=== PATIENT | female | born 1940 | race Caucasian/White ===

== ENCOUNTER 2020-09-16 16:58 | Emergency (ER) | payer MEDICARE, OTHER ==
[2020-09-16] MEDS ORDERED: Acetaminophen 325 MG Tab PO ONE (18:32)
[2020-09-16] MEDS ORDERED: Sodium Chloride 0.9% 1,000 ML IV ONE (20:35)
--- NOTE | 2020-09-16 21:23 | EDM.PDOC ---
ED HPI GENERAL MEDICAL PROBLEM - General Chief Complaint: Cardiovascular Problem Stated Complaint: HIGH HEART RATE Time Seen by Provider: 09/16/20 17:54 Source of Information: Reports: Patient, Family History Limitations: Reports: No Limitations - History of Present Illness INITIAL COMMENTS - FREE TEXT/NARRATIVE: Megan is a 72-year-old female presenting to the ED for evaluation of rapid heartbeat. The patient has been having intermittent episodes of this as well as episodes of dizziness and lightheadedness following having bilateral knee replacements done in [place] 5 weeks ago. Patient has been getting home physical therapy and one of the therapist checked her for orthostatic hypotension which was positive on 1 evaluation and negative on subsequent evaluation. The tachycardia does appear to be both at rest and with position change. The patient denies any shortness of breath or chest pain with it. She has been experiencing increased eye dryness and irritation as well as dry mucous membranes. She does report that she has not been drinking as much fluids since having the surgery and was at one point struggling with constipation due to the pain medicine that she was on, however, this is since improved since discontinuing the pain medicine. The patient denies any significant history of thyroid or cardiac problems. She is currently only taking Tylenol for pain. She denies any history of hypotension or hypertension. She states that as a teenager she had hypothyroidism but subsequently "outgrew that" and is no longer on thyroid replacement therapy. - Related Data Allergies Allergy/AdvReac Type Severity Reaction Status Date / Time chlordiazepoxide AdvReac Anxiety Verified 09/16/20 17:15 [From Librax (with methscopolamine)] scopolamine AdvReac Anxiety Verified 09/16/20 17:15 [From Librax (with methscopolamine)] Home Meds: Home Meds Omeprazole 40 mg PO ACBREAKFAST 09/16/20 [History] Oxybutynin 5 mg PO DAILY 09/16/20 [History] hydroCHLOROthiazide [Hydrochlorothiazide] 25 mg PO DAILY 09/16/20 [History] Past Medical History HEENT History: Reports: Impaired Vision Cardiovascular History: Reports: Hypertension Gastrointestinal History: Reports: Chronic Diarrhea, Irritable Bowel Syndrome Genitourinary History: Reports: UTI, Recurrent Musculoskeletal History: Reports: Arthritis - Past Surgical History Head Surgeries/Procedures: Reports: None HEENT Surgical History: Reports: Cataract Surgery Cardiovascular Surgical History: Reports: None GI Surgical History: Reports: Hernia, Abdominal Female Surgical History: Reports: Hysterectomy Musculoskeletal Surgical History: Reports: Hip Replacement, Knee Replacement, Other (See Below) Other Musculoskeletal Surgeries/Procedures:: left ankle Dermatological Surgical History: Reports: None Social & Family History - Tobacco Use Tobacco Use Status *Q: Former Tobacco User Used Tobacco, but Quit: Yes Month/Year Tobacco Last Used: 1969 Second Hand Smoke Exposure: No - Caffeine Use Caffeine Use: Reports: None - Recreational Drug Use Recreational Drug Use: No ED ROS GENERAL - Review of Systems Review Of Systems: See Below Constitutional: Reports: No Symptoms HEENT: Reports: Other (Dry eyes and mucous membranes) Respiratory: Reports: No Symptoms Cardiovascular: Reports: Lightheadedness, Palpitations (Tachycardia) Endocrine: Reports: No Symptoms GI/Abdominal: Reports: Constipation : Reports: Other (Decreased urination and darker urine.) Musculoskeletal: Reports: Joint Pain (Bilateral knee pain after replacement), Muscle Stiffness (Due to recent surgery) Skin: Reports: No Symptoms Neurological: Reports: Dizziness (Intermittently), Difficulty Walking (Due to recent bilateral knee replacement, currently undergoing physical therapy.) Psychiatric: Reports: No Symptoms Hematologic/Lymphatic: Reports: No Symptoms Immunologic: Reports: No Symptoms ED EXAM, GENERAL - Physical Exam Exam: See Below Exam Limited By: No Limitations General Appearance: Alert, WD/WN, No Apparent Distress Eye Exam: Bilateral Eye: EOMI, PERRL Throat/Mouth: Normal Lips, Normal Teeth, Normal Voice, Other (Dry mucous membranes) Head: Atraumatic, Normocephalic Neck: Normal Inspection, Supple, Non-Tender, Full Range of Motion. No: Carotid Bruit, Lymphadenopathy (R), Lymphadenopathy (L) Respiratory/Chest: No Respiratory Distress, Lungs Clear, Normal Breath Sounds, No Accessory Muscle Use, Chest Non-Tender Cardiovascular: Normal Peripheral Pulses, No Edema, No JVD, No Murmur, Tachycardia Peripheral Pulses: 2+: Radial (L), Radial (R), Posterior Tibial (L), Posterior Tibial (R) GI/Abdominal: Normal Bowel Sounds, Soft, Non-Tender, No Distention Back Exam: Normal Inspection, Full Range of Motion, NT Extremities: Normal Inspection, Normal Range of Motion, Non-Tender, Normal Capillary Refill, No Pedal Edema Neurological: Alert, Oriented, CN II-XII Intact, Normal Cognition, No Motor/Sensory Deficits Psychiatric: Normal Affect, Normal Mood Skin Exam: Warm, Dry, Intact, Normal Color, Wound/Incision (Surgical incisions are clean, dry, and intact.) Lymphatic: No Adenopathy #1 Interpretation EKG Date: 09/16/20 Time: 18:42 Rhythm: NSR Rate (Beats/Min): 80 [place]: Normal P-Wave: Present QRS: Normal ST-T: Normal QT: Normal Comparison: NA - No Prior EKG Course - Vital Signs Last Recorded V/S: Last Vital Signs Temp 36.4 C 09/16/20 17:17 Pulse 87 09/16/20 21:23 Resp 12 09/16/20 21:23 BP 138/57 L 09/16/20 21:23 Pulse Ox 98 09/16/20 21:23 - Orders/Labs/Meds Orders: Active Orders 24 hr Category Date Time Status EKG Documentation Completion [RC] ASDIRECTED Care 09/16/20 18:33 Active Sodium Chloride 0.9% [Normal Saline] 1,000 ml Med 09/16/20 20:35 Active IV .BOLUS EKG 12 Lead [EK] Routine Ther 09/16/20 18:32 Ordered Medication Orders Sodium Chloride (Normal Saline) 1,000 mls @ 999 mls/hr IV .BOLUS ONE Stop: 09/16/20 21:35 Last Admin: 09/16/20 20:25 Dose: 999 mls/hr Documented by: TERRANCE Labs: Laboratory Tests 09/16/20 09/16/20 Range/Units 18:32 18:32 WBC 7.2 (4.5-11.0) K/uL RBC 3.91 (3.30-5.50) M/uL Hgb 10.8 L (12.0-15.0) g/dL Hct 33.5 L (36.0-48.0) % MCV 86 (80-98) fL MCH 28 (27-31) pg MCHC 32 (32-36) % Plt Count 286 (150-400) K/uL Neut % (Auto) 57 (36-66) % Lymph % (Auto) 27 (24-44) % [place] % (Auto) 10 H (2-6) % Eos % (Auto) 5 H (2-4) % Baso % (Auto) 1 (0-1) % Sodium 139 L (140-148) mmol/L Potassium 3.5 L (3.6-5.2) mmol/L Chloride 106 (100-108) mmol/L Carbon Dioxide 23 (21-32) mmol/L Anion Gap 13.5 (5.0-14.0) mmol/L BUN 21 H (7-18) mg/dL Creatinine 1.1 H (0.6-1.0) mg/dL Est Cr Clr Drug Dosing 40.22 mL/min Estimated GFR (MDRD) 48 L (>60) BUN/Creatinine Ratio Not Reportable Glucose 97 (74-106) mg/dL Calcium 9.0 (8.5-10.1) mg/dL Total Bilirubin 0.3 (0.2-1.0) mg/dL AST 9 L (15-37) U/L ALT 15 (12-78) U/L Alkaline Phosphatase 71 (46-116) U/L Troponin I < 0.017 (0.000-0.056) ng/mL Total Protein 6.4 (6.4-8.2) g/dL Albumin 3.3 L (3.4-5.0) g/dL Globulin 3.1 (2.3-3.5) g/dL Albumin/Globulin Ratio 1.1 L (1.2-2.2) TSH, Ultra Sensitive 1.132 (0.358-3.740) uIU/mL Meds: Medications Generic Name Dose Route Start Last Admin Trade Name Freq PRN Reason Stop Dose Admin Sodium Chloride 1,000 mls @ 999 mls/hr 09/16/20 20:35 09/16/20 20:25 Normal Saline IV 09/16/20 21:35 999 mls/hr .BOLUS ONE Administration Discontinued Medications Generic Name Dose Route Start Last Admin Trade Name Freq PRN Reason Stop Dose Admin Acetaminophen 1,000 mg 09/16/20 18:32 09/16/20 18:36 Tylenol PO 09/16/20 18:33 1,000 mg NOW ONE Administration - Re-Assessments/Exams Free Text/Narrative Re-Assessment/Exam: 09/16/20 21:00 I reviewed the patient's labs and EKG. She does have a significant elevation of her BUN to creatinine ratio of 21:1 0.1 likely indicating a level of dehydration. Her EKG is completely unremarkable for abnormalities showing normal sinus rhythm with rate of 80 bpm and no abnormalities. I do not have a previous one to compare. Most of the patient's healthcare has been obtained on the [facility] and we do not have access to those records. The patient has a normal TSH and comprehensive metabolic panel with the exception of a slightly low potassium 3.5. This should be able to be remedied just by dietary intake. I did recommend to the patient that she make sure that she adequately hydrates as I think this is also likely the cause for her recurrent dizziness and orthostatic hypotension. 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 She does have an appointment this week with her neurologist to further investigate her dizziness. Departure - Departure Time of Disposition: 21:19 Disposition: Home, Self-Care 01 Condition: Good Clinical Impression: Dehydration, Sinus tachycardia Instructions: Sinus Tachycardia, Dehydration, Adult, [id number] Referrals: Jerzy Hughes [employer] [Primary Care Provider] - Forms: ED Department Discharge Care Plan Goals: It appears that your tachycardia is likely related directly to persistent dehydration. In the wintertime especially you need to make a sustained effort to maintain hydration as you lose approximately 80 to 100 ounces of water a day just by breathing or what we call insensible fluid loss. This does not do account for the amount that she loses with urination or perspiration either. As a result you should make sure that you are taking in at least the same amount of fluid each day. Every couple coffee requires 2 glasses of water to replace the volume you lose as coffee and sodas or diuretics. This should help significantly with your dizziness as well. The rapid heartbeat is a result of your heart trying to maintain adequate circulation and is a normal involuntary response to being dehydrated. I do not see anything otherwise worrisome in your work-up today. It was a pleasure meeting with you to and if you have questions feel free to reach out to us in the future. Sepsis Event Note (ED) - Evaluation Sepsis Screening Result: No Definite Risk - Focused Exam Vital Signs: Vital Signs Temp Pulse Resp BP Pulse Ox 09/16/20 21:23 87 12 138/57 L 98 09/16/20 19:40 85 19 121/50 L 99 09/16/20 18:12 114 H 18 137/80 94 L 09/16/20 17:55 104 H 16 135/69 100 09/16/20 17:17 36.4 C 95 16 155/70 H 98 09/16/20 17:14 36.4 C 95 16 155/70 H 98 - Problem List & Annotations (1) Dehydration SNOMED Code(s): 32072071 Code(s): E86.0 - DEHYDRATION Status: Acute Current Visit: Yes (2) Sinus tachycardia SNOMED Code(s): 97070674 Code(s): R00.0 - TACHYCARDIA, UNSPECIFIED Status: Acute Current Visit: Yes - Problem List Review Problem List Initiated/Reviewed/Updated: Yes - My Orders Last 24 Hours: My Active Orders 09/16/20 18:32 EKG 12 Lead [EK] Routine 09/16/20 18:33 EKG Documentation Completion [RC] ASDIRECTED 09/16/20 20:35 Sodium Chloride 0.9% [Normal Saline] 1,000 ml IV .BOLUS - Assessment/Plan Last 24 Hours: My Active Orders 09/16/20 18:32 EKG 12 Lead [EK] Routine 09/16/20 18:33 EKG Documentation Completion [RC] ASDIRECTED 09/16/20 20:35 Sodium Chloride 0.9% [Normal Saline] 1,000 ml IV .BOLUS
== END 2020-09-16 21:37 | disposition home or self-care (01) ==
LOC: JP.ED 16:58
DX: R00.0 Tachycardia, unspecified (principal); E86.0 Dehydration; I10 Essential (primary) hypertension; Z79.899 Other long term (current) drug therapy; Z87.891 Personal history of nicotine dependence; Z88.8 Allergy status to other drugs, medicaments and biological substances
CPT/HCPCS: 36415; 80053; 84443; 84484; 85025; 93005; 99285; A9270; J7030